=== PATIENT | female | born 1960 | race Caucasian/White ===

== ENCOUNTER → 2016-08-28 | Outpatient (CLI) | payer BC ==
--- NOTE | 2016-08-28 17:16 | KCIC ---
Bilateral digital screening mammograms with CAD: HISTORY Routine screening COMPARISON Comparison is made to previous examinations dated 06/03/2015 and 05/25/2014. FINDINGS Breast density category C. The skin and nipples show no abnormalities. No abnormal lymph nodes are seen in the axilla. The breast parenchyma shows heterogeneous density. There are no dominant masses, suspicious calcifications or architectural distortions. IMPRESSION No evidence of malignancy. Recommend routine annual mammographic screening. This study was interpreted with the benefit of Computerized Aided Detection (CAD). Mammography is not 100% sensitive in detecting breast cancer. Therefore, a self breast exam and a clinical breast exam are very important. A negative mammogram does not negate a clinically suspicious finding and should not result in a delay in biopsying a clinically suspicious abnormality. BI-RADS category 1. Negative. This patient's information has been entered into a reminder system for the patient to be notified with the results of this examination and a target date for her next mammograms. Electronically signed by: Kusum Ford MD (Aug 28, 2016 17:14:52)
== END | disposition home or self-care (01) ==
LOC: KCIC MAMMO 15:56
PROVIDERS: ATTEND Family Medicine
DX: Z12.31 Encounter for screening mammogram for malignant neoplasm of breast (principal)
CPT/HCPCS: G0202; 77067

== ENCOUNTER → 2016-11-06 | Outpatient (CLI) | payer BC ==
[~2016-11-06] MED LIST: ASPI-630 PO; CYCL10TA2 PO; HYDR50TA6 PO; IBUP-1060 PO
[2016-11-06 15:56] LABS: BASO % 1 % (0-3); EOS % 2 % (0-3); HEMATOCRIT 38.6 % (36.0-47.0); LYMPH # 1.9 x10^3/uL (1.0-4.8); LYMPH % 25 % (24-48); MEAN CORPUSCULAR HEMOGLOBIN 30 pg (25-35); MEAN CORPUSCULAR HGB CONC 34 g/dL (31-37); MEAN CORPUSCULAR VOLUME 89 fL (79-100); MONO % 7 % (0-9); NEUT % 66 % (31-73); PLATELET COUNT 311 x10^3/uL (140-400); RED BLOOD COUNT 4.35 x10^6/uL (3.50-5.40); RED CELL DISTRIBUTION WIDTH 14.8 % (11.5-14.5); WHITE BLOOD COUNT 7.6 x10^3/uL (4.0-11.0)
[2016-11-06 16:06] LABS: PROTHROMBIN TIME PATIENT 12.5 SEC (11.7-14.0)
[2016-11-06 16:09] LABS: ALBUMIN 4.2 g/dL (3.4-5.0); ALBUMIN/GLOBULIN RATIO 1.2 (1.0-1.7); CALCIUM 9.2 mg/dL (8.5-10.1); CREATININE 1.2 mg/dL (0.6-1.0); GFR 46.1; POTASSIUM 4.1 mmol/L (3.5-5.1); TOTAL BILIRUBIN 0.3 mg/dL (0.2-1.0); TOTAL PROTEIN 7.7 g/dL (6.4-8.2)
== END | disposition home or self-care (01) ==
LOC: SURGPAT 13:19
PROVIDERS: ATTEND Neurological Surgery
DX: M48.06 Spinal stenosis, lumbar region (principal); M43.16 Spondylolisthesis, lumbar region
CPT/HCPCS: 36415; 80053; 85027; 85610; 85730; 87641

== ENCOUNTER 2016-11-13 10:30 | Inpatient (IN) | payer BC ==
[~2016-11-13] VITALS: Ht 175.3 cm; Wt 67.6 kg
[2016-11-15] VITALS (8 sets, daily range): BP systolic 119–156; BP diastolic 70–93
[2016-11-15] MEDS ORDERED: BACITRACIN 50,000 UNIT in IV NORMAL SALINE 1000ML BAG 1,000 ML IRR ONE (06:00)
[2016-11-15] MEDS ORDERED: PROCHLORPERAZINE 10 MG/2 ML VIAL. IV PRN ×2 (07:00→18:30)
[2016-11-15] MEDS ORDERED: MORPHINE SULFATE 2 MG/ML DISP.SYRIN. IV PRN ×2 (07:00→18:30)
[2016-11-15] MEDS ORDERED: LIDOCAINE 1% 1 ML SYRINGE. ID PRN (07:00)
[2016-11-15] MEDS ORDERED: fentaNYL PF VIAL 100 MCG/2 ML VIAL IV PRN ×3 (07:00→18:30)
[2016-11-15] MEDS ORDERED: ONDANSETRON PF 4 MG/2 ML VIAL. IV PRN ×3 (07:00→18:30)
[2016-11-15] MEDS ORDERED: HYDROmorphone 2 MG/ML VIAL IV PRN ×2 (07:00→18:30)
[2016-11-15] MEDS ORDERED: HYDR-2758 PO (09:31)
[2016-11-15] MEDS ORDERED: REMIFENTANIL 2 MG VIAL. IV ONE (09:58)
[2016-11-15] MEDS ORDERED: fentaNYL PF VIAL 250 MCG/5 ML VIAL ONE (09:58)
[2016-11-15] MEDS ORDERED: MIDAZOLAM HCL/PF 2 MG/2 ML VIAL. ONE (09:58)
[2016-11-15] MEDS ORDERED: DESFLURANE > 120 MINUTES IH ONE (09:59)
[2016-11-15] MEDS ORDERED: LIDOCAINE 2% PF Vial for OR 5 ML VIAL. ONE (09:59)
[2016-11-15] MEDS ORDERED: PROPOFOL 50 ML IV ONE ×2 (09:59→15:26)
[2016-11-15] MEDS ORDERED: PROPOFOL 20 ML IV ONE (09:59)
[2016-11-15] MEDS ORDERED: ONDANSETRON PF 4 MG/2 ML VIAL. ONE (09:59)
[2016-11-15] MEDS ORDERED: MINERAL OIL/PETROLATUM,WHITE OPHTH OINT 3.5GM TUBE. ONE (09:59)
[2016-11-15] MEDS ORDERED: 0.9 % SODIUM CHLORIDE 50 ML VIAL. IJ ONE ×2 (09:59→16:10)
[2016-11-15] MEDS ORDERED: DEXAMETHASONE SOD PHOS 20 MG/5 ML VIAL. ONE (09:59)
[2016-11-15] MEDS ORDERED: ROCURONIUM 50 MG/5 ML VIAL. ONE (09:59)
[2016-11-15] MEDS: IV RINGERS,LACTATED 1000ML 1,000 ML IV SCH ×2 (10:03→18:18)
--- NOTE | 2016-11-15 12:15 | RAD ---
CT lumbar spine without contrast 11/15/2016 Indication: Spondylolisthesis Comparison: None available Technique: Multiple axial CT images of the lumbar spine were performed without intravenous contrast. Coronal and sagittal reformats provided. Findings: There is grade 2 anterolisthesis of L4 on L5. There is disc height loss with endplate sclerosis of L4-L5. There is no spondylolysis. Small Schmorl's node is identified involving the superior endplate of L5. Small Schmorl's nodes are noted involving the superior endplates of L1 and L2. No acute fracture is identified. Visualized portions of the abdomen are normal. Sacroiliac joints are within normal limits. L1-L2: Minimal disc bulge. No significant facet arthropathy. No neural foraminal or spinal canal stenosis. L2-L3: There is minimal disc bulge. Mild facet arthropathy. No significant neuroforaminal or spinal canal stenosis. L3-L4: Mild disc bulge. Mild facet arthropathy. Mild neural foraminal stenosis. No spinal canal stenosis. L4-L5: There is uncovering of the disc secondary to spondylolisthesis. There is severe facet arthropathy. Severe spinal canal stenosis. Severe neural foraminal stenosis. L5-S1: There is mild disc bulge. Mild facet arthropathy. No spinal canal stenosis. No significant neuroforaminal stenosis. Impression: There is grade 2 anterolisthesis of L4 and L5 with associated severe facet arthropathy. Findings result in severe bilateral neuroforaminal and spinal canal stenosis. PQRS Compliance Statement: One or more of the following individualized dose reduction techniques were utilized for this examination: 1. Automated exposure control 2. Adjustment of the mA and/or kV according to patient size 3. Use of iterative reconstruction technique
[2016-11-15] MEDS ORDERED: THROMBIN TOPICAL 20,000 UNIT SPRAY.SYRN KIT TP ONE (13:14)
[2016-11-15] MEDS ORDERED: GELATIN SPONGE SIZE 100. TP ONE (13:14)
[2016-11-15] MEDS ORDERED: BUPIVACAINE-EPI 0.25%-1:200000 MPF 30 ML VIAL. INJ ONE (13:14)
[2016-11-15] MEDS ORDERED: KETOROLAC 60 MG/2 ML INJ FOR OR. INJ ONE (13:14)
[2016-11-15] MEDS ORDERED: PHENYLEPHRINE in 0.9% NACL PF 1 MG/10 ML DISP.SYRIN. IV ONE (13:48)
[2016-11-15] MEDS ORDERED: PHENYLEPHRINE 10 MG/ML VIAL. ONE ×2 (14:02)
[2016-11-15] MEDS ORDERED: REMIFENTANIL 1 MG VIAL. IV ONE (16:10)
[2016-11-15] MEDS ORDERED: POTASSIUM CL 20MEQ D5-0.45NACL 1,000 ML IV SCH (17:16)
[2016-11-15] MEDS ORDERED: diphenhydrAMINE 50 MG/ML VIAL IV PRN (17:30)
[2016-11-15] MEDS ORDERED: ACETAMINOPHEN 325 MG TABLET. PO PRN (17:30)
[2016-11-15] MEDS ORDERED: oxyCODONE/APAP 5/325 1 TAB TABLET PO PRN (17:30)
[2016-11-15] MEDS ORDERED: MAGNESIUM HYDROXIDE 2,400 MG/30 ML ORAL.SUSP. PO PRN (17:30)
[2016-11-15] MEDS ORDERED: 0.9 % SODIUM CHLORIDE 10 ML DISP.SYRIN. IV PRN (17:30)
[2016-11-15] MEDS ORDERED: diphenhydrAMINE HCL 25 MG CAPSULE PO PRN (17:30)
[2016-11-15] MEDS ORDERED: CALCIUM CARBONATE 500 MG TAB.CHEW PO PRN (17:30)
[2016-11-15] MEDS ORDERED: ZOLPIDEM 5 MG TABLET. PO PRN (17:30)
[2016-11-15] MEDS ORDERED: MAG HYDROX/ALUMINUM HYD/SIMETH 30 ML ORAL.SUSP PO PRN (17:30)
[2016-11-15] MEDS: fentaNYL PF VIAL 100 MCG/2 ML VIAL IV PRN ×4 (17:37→18:43)
[2016-11-15] MEDS: hydroCHLOROthiazide 25 MG TABLET PO SCH (19:53)
[2016-11-15] MEDS: DOCUSATE SODIUM 100 MG CAPSULE. PO SCH (20:54)
[2016-11-15] MEDS: METHOCARBAMOL 750 MG TABLET PO SCH (20:54)
[2016-11-15] MEDS ORDERED: CYCLOBENZAPRINE 10 MG TABLET. PO SCH (21:00)
[2016-11-15] MEDS: oxyCODONE/APAP 5/325 1 TAB TABLET PO PRN (22:01)
[2016-11-16 01:37] VITALS: BP 131/80
[2016-11-16] MEDS: oxyCODONE/APAP 5/325 1 TAB TABLET PO PRN ×3 (01:44→13:21)
[2016-11-16 06:19] VITALS: BP 144/81
[2016-11-16] MEDS: METHOCARBAMOL 750 MG TABLET PO SCH ×2 (08:57→14:51)
[2016-11-16] MEDS: DOCUSATE SODIUM 100 MG CAPSULE. PO SCH (08:57)
[2016-11-16] MEDS ORDERED: ASPIRIN CHEWABLE 81 MG TABLET. PO SCH (09:00)
[2016-11-16] MEDS: hydroCHLOROthiazide 25 MG TABLET PO SCH (09:00)
[2016-11-16 11:19] VITALS: BP 133/79
[2016-11-16] MEDS ORDERED: CYCL10TA2 PO (14:37)
--- NOTE | 2016-11-16 15:54 | DISCH ---
DISCHARGE INSTRUCTIONS Condition on Discharge Condition on Discharge: Stable Activity After Discharge Activity Instructions for Disc: Activity as tolerated, Avoid exertion Bathing Instructions: Shower-keep dressing dry Lifting Instructions after Dis: No heavy lifting, No pulling or pushing, Do not lift >10 pounds Driving Instructions after Dis: No driving for 2 weeks Diet after Discharge Additional Diet Restrictions: resume home diet Wound Incision Care Wound/Incision Care: Ice to area for comfort Other wound/incision instructi: may remove dressing in 48 hrs if dry then may shower- no soaking Contacting the after DC Call your doctor for: Concerns you may have Follow-Up Follow up with: Dr. Garcia's nurse in 2 weeks [phone] DEBI GARCIA MD Nov 16, 2016 15:54
[2016-11-16] MEDS ORDERED: OXYC1TAB7 PO (15:55)
--- NOTE | 2016-11-17 15:14 | PATHOLOGY ---
PATHOLOGY REPORT * * * * * * * * FINAL DIAGNOSIS: Bone, soft tissue, and cartilage, "lumbar decompression": - Bone, cartilage, and soft tissue revealing fibrosis consistent with stenosis. ([facility]; 11/17/2016) REPORT ELECTRONICALLY SIGNED BY: Chandler Figueredo M.D. DATE/TIME: 11/17/2016 15:14 * * * * * * * * GROSS PATHOLOGY: Received in formalin labeled "Tawana Kurtz, lumbar decompression" are multiple segments of ochoa, rubbery, and gritty tissue admixed with bone. The specimen measures 4.2 x 3.5 x 0.9 cm in aggregate dimensions. The tissue is submitted representatively in cassette A1, following decalcification. ([facility]; 11/16/16) INITIAL CPT CODE(S): A; 17137, 91917 Professional services performed [place] [facility] [place] [address] Technical services performed by [facility] at [address] [place] [address], [facility] [address], [place] [address]. SPECIMEN(S) RECEIVED: A.Lumbar decompression CLINICAL HISTORY: Lumbar spondylolisthesis, stenosis, radiculopathy PATIENT: TAWANA KURTZ /AGE: 307/24/1960 (Age: 56) PATIENT #: [id number] ALT CASE #: SPECIMEN COLLECTION DATE: 11/15/2016 SPECIMEN RECEIVED DATE: 11/16/2016 [facility] - [address] [place] [address] - PHONE: [phone] * * * END OF REPORT * * *
--- NOTE | 2016-11-30 00:19 | OP ---
DATE OF SURGERY: PREOPERATIVE DIAGNOSES: Grade 2 spondylolisthesis at L4-5 with severe lumbar spinal stenosis. POSTOPERATIVE DIAGNOSIS: Grade 2 spondylolisthesis at L4-5 with severe lumbar spinal stenosis. OPERATION PERFORMED: Laminectomy - L4-5, placement of pedicle screws at L4-5 with reduction of spondylolisthesis, and posterolateral fusion at L4-5 with allograft and autograft bone. The operation was done with EMG monitoring, motor evoked potentials, fluoroscopy, and microscopic dissection. FAMILY PRACTICE DOCTOR: Ana landeros assisted with the surgery. She assisted with the laminectomy and placement of pedicle screws, posterolateral fusion, and closure. OPERATIVE INDICATIONS: The patient is a very pleasant 56-year-old woman, who developed problems with severe intractable back and [id number]-right leg pain. On imaging studies, she had a large, grade 2 spondylolisthesis. She had pars defect and severe lumbar spinal stenosis. I recommended a wide laminectomy combined with an instrumented lumbar fusion. I discussed with her the surgery and the risks, techniques involved, and she wished to go ahead. DESCRIPTION OF PROCEDURE: Following general endotracheal anesthesia, the patient was positioned prone on the Faraz table. Her lumbar region was prepped and draped in the standard fashion. CARINA hose and AV impulse boots were applied for DVT prophylaxis. The microscope was draped. Fluoroscopy was draped and brought into the field. Ancef 2 grams was given less than 1 hour prior to initiation of the surgery. Iliac pins were placed into the right iliac crest and the Brain[employer] system was initialized. I then made a midline posterior incision. I dissected down through the skin and subcutaneous tissue, reflected the paraspinal muscles and placed self-retaining retractors. I brought in the [employer] system, and using anatomic landmarks as well as the [employer], I drilled into the posterior aspect of the pedicles of L4 and L5 bilaterally with a high-speed air drill and then sequentially, I passed a ____black ball-tip probe, tap, and then screw placement. I used the NuV[employer] system and placed the screws without difficulty. I used stimulated electrophysiologic monitoring throughout the placement of the screws. There was no breach of the pedicle wall and the screws were placed without difficulty. I did use reduction screws and I placed the rods and I reduced the spondylolisthesis ____ and better decompression. I removed the spinous processes and morcellated this bone. I also used a high-speed air drill to bur down a very generous laminectomy. I trimmed away very thickened ligamentum flavum and I worked from medial to laterally and fully decompressed the entire region. I also performed partial foraminotomies at this point, then I had an excellent laminectomy and decompression. I worked to place interbody fusion cage anteriorly, but the L4 roots were stretched laterally, and because of the persistent grade 1 spondylolisthesis, despite working very diligently to reduce, I did not feel that placement of the cage would be safe and may injure the nerve roots, so I elected to complete the surgery from behind. I did place allograft and autograft bone in each lateral gutter after excoriating the transverse processes and lateral facets at L4-5 bilaterally. During this time, I also aspirated 20 mL of bone marrow, which I also used to place the augmented allograft bone. After the reduction, the system was torqued and the taps on the reduction screws were removed. I irrigated copiously. Films looked quite good. I felt that I had an excellent decompression and reduction. I irrigated and removed the retractor, obtained hemostasis in the muscle, and I closed the wound in layers with absorbable suture. Skin was closed with 4-0 subcuticular stitch. The operation went very well and the patient was taken to recovery room in excellent condition. I was quite pleased with the surgery. DEBI GARCIA MD DR: TUNG/gume JOB#: [id number] / [id number]
== END 2016-11-16 15:00 | disposition home or self-care (01) | DRG 460 ==
LOC: OPSVCIP 11-15 08:46 → 4 SOUTHEST 11-15 19:00
PROVIDERS: ADMIT Neurological Surgery; ATTEND Neurological Surgery
PROC: 01NB0ZZ Release Lumbar Nerve, Open Approach (ICD-10-PCS; 2016-11-15)
PROC: 07DR3ZZ Extraction of Iliac Bone Marrow, Percutaneous Approach (ICD-10-PCS; 2016-11-15)
PROC: 4A1004G Monitoring of Central Nervous Electrical Activity, Intraoperative, Open Approach (ICD-10-PCS; 2016-11-15)
PROC: 0SG00A1 (ICD-10-PCS; principal; 2016-11-15 11:30)
DX: M43.16 Spondylolisthesis, lumbar region (principal); M48.06 Spinal stenosis, lumbar region; Z79.899 Other long term (current) drug therapy; Z91.048 Other nonmedicinal substance allergy status
CPT/HCPCS: 36415; 72131; 76000; 86850; 86900; 86901; 88304; 88311; C1713; J0690; J0780; J1100; J1885; J2001; J2250; J2270; J2370; J2405; J2704; J3010; J3490; J7030; J7120

== ENCOUNTER → 2017-09-12 | Outpatient (CLI) | payer BC | END | disposition home or self-care (01) | LOC: KCIC MAMMO 15:22 | DX: Z12.31 Encounter for screening mammogram for malignant neoplasm of breast (principal) | CPT/HCPCS: 77067 ==

== ENCOUNTER → 2018-10-09 | Outpatient (CLI) | payer BC ==
[~2018-10-09] MED LIST changes: +HYDR-2761 PO; +OXYC1TAB7 PO
--- NOTE | 2018-10-09 17:03 | KCIC ---
Bilateral digital screening mammograms: Reason for examination: Routine screening. Comparison is made to previous studies dated 09/12/2017, 08/28/2016 and 06/03/2015. Interpretation was made with the benefit of CAD. The skin and nipples show no abnormalities. No abnormal axillary lymph nodes are seen. The breast parenchyma shows scattered fibroglandular density. (Breast density: Category B.) There continue to be parenchymal asymmetries bilaterally which are stable. There are no new dominant masses, suspicious calcifications or architectural distortions. Impression: No evidence of malignancy. Recommend routine screening. BI-RADS Category 2: Benign. "Our facility is accredited by the [employer] Mammography Program." This patient's information has been entered into a reminder system for the patient to be notified with the results of her examination and a target date for the next mammogram. Electronically signed by: Natalya Ford MD (10/09/2018 5:00 PM) [id number]
== END | disposition home or self-care (01) ==
LOC: KCIC MAMMO 15:36
DX: Z12.31 Encounter for screening mammogram for malignant neoplasm of breast (principal)
CPT/HCPCS: 77067

== ENCOUNTER → 2021-02-17 | Outpatient (CLI) | payer BC ==
[~2021-02-17] MED LIST changes: -HYDR50TA6 PO; +HYDR50TA9 PO
--- NOTE | 2021-02-17 16:38 | KCIC ---
Screening bilateral mammogram with tomography dated 02/17/2021. INDICATION: 60 years of age asymptomatic female patient presents for screening mammography. Screening TECHNIQUE: Full field craniocaudal and mediolateral oblique images of both breasts were obtained usi ng digital technique with tomosynthesis and also analyzed with computer-aided detection software. . COMPARISON: 24/08/2016, 09/12/2017 10/09/2018. BREAST COMPOSITION: Category B: There are scattered fibroglandular densities. FINDINGS: No suspicious mass or clustered microcalcification. No architectural distortion. IMPRESSION: Stable bilateral mammogram. RECOMMENDATION: Annual screening mammography is recommended, unless clinically indicated sooner based on symptoms or change in physical exam. BIRADS 1: NEGATIVE This study was interpreted with the benefit of Computerized Aided Detection (CAD). Recommend follow-up screening mammogram in one year. Patient information is entered into the reminder system with a target due date for the next screening mammogram. Mammography is the most sensitive method for finding small breast cancers, but it does not detect the m all and is not a substitute for careful clinical examination. A negative mammogram does not negate a clinically suspicious finding and should not result in delay in biopsying a clinically suspicious a bnormality. "Our facility is accredited by the [employer] Mammography Program." Electronically signed by: John Bower MD (02/17/2021 4:35 PM) [id number]
== END ==
LOC: KCIC MAMMO 15:17
PROVIDERS: ATTEND Obstetrics & Gynecology
DX: Z12.31 Encounter for screening mammogram for malignant neoplasm of breast (principal)
CPT/HCPCS: 77063; 77067

== ENCOUNTER → 2021-03-02 | Outpatient (CLI) | payer BC ==
[~2021-03-02] MED LIST changes: +CYCL10TA19 PO; -CYCL10TA2 PO
--- NOTE | 2021-03-02 16:41 | KCIC ---
EXAMINATION: MRI RIGHT SHOULDER WITHOUT IV CONTRAST CLINICAL HISTORY: Posterior right shoulder pain TECHNIQUE: Multiplanar multisequential images obtained through the shoulder without intravenous contr ast. COMPARISON: None FINDINGS: TENDONS: - Supraspinatus: Moderate tendinosis without discrete tear. - Infraspinatus: Mild tendinosis. - Subscapularis: Within normal limits. - Teres Minor: Within normal limits. - Biceps Tendon: The long head biceps tendon is intact and appropriately located. MUSCLES: Muscle bulk and signal intensity are within normal limits. LABRUM: Circumferential labral degeneration without discrete tear. GLENOHUMERAL JOINT: - Joint Fluid: No joint effusion or synovitis. - Cartilage: Subchondral marrow reactive/cystic changes in the humeral head and glenoid, compatible w ith overlying full-thickness chondral loss/fissuring. ACROMIOCLAVICULAR JOINT: Minimal degenerative changes. BONES/MARROW: No evidence of acute fracture or suspicious marrow replacing process. Chronic reactive changes in the greater tuberosity. OTHER: Mild thickening of the subacromial/subdeltoid bursa. IMPRESSION: Mild to moderate full-thickness chondral wear in the glenohumeral joint as described. Mild to moderate rotator cuff tendinosis. No full-thickness rotator cuff tear. Electronically signed by: Kameron Souza DO (03/02/2021 4:39 PM) [id number]
== END ==
LOC: KCIC MRI 15:10
PROVIDERS: ATTEND Chiropractor
DX: M25.511 Pain in right shoulder (principal)
CPT/HCPCS: 73221